=== PATIENT | female | born 1955 | race Caucasian/White ===

== ENCOUNTER 2016-12-20 10:11 | Observation (INO) | payer BC ==
--- NOTE | ~2016-12-20 | OP ---
Record Of Operation [facility] [address] [place]. [address] NAME: MATIAS CAMPBELL : 59 STATUS : DIS Zeenat PAT#: [id number] AGE: 61 ADM/REG DATE : 12/20/16 MR#: [id number] REPORT SERV DATE: 12/23/16 DICTATED BY: TIMUR SEBASTIAN DATE: 12/20/16 REPORT STATUS : Draft TRANSCRIBED BY: MODL DATE: 12/20/16 DATE OF PROCEDURE: 12/20/2016 REFERRING THEATRE PROGRAM DIRECTOR: Timur Sebastian M.D. PROCEDURE PERFORMED: Right renal angiogram, angioplasty, and stenting of the right renal artery with placement of a 6 x 18 Varsha stent. Successful Angio-Seal closure, right femoral artery. SCREEN EXAMINER: Timur Sebastian M.D. 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 TECHNIQUE: After informed consent was obtained from Ms. Campbell in this situation, she was brought to the cardiac catheterization laboratory in the afternoon of 12/20/2016 in the fasting state. The time-out was performed and correct patient and operative plan were confirmed. The right coronary area was prepped and draped in the usual sterile fashion. Local anesthesia was accomplished using 1% lidocaine. Using modified Seldinger technique, a micro sheath was placed in the right femoral artery with excellent arterial return. Femoral angiogram was obtained which demonstrated good stick in the common femoral artery, thought suitable for closure. There was also patent lovmq-br-ouho fem-fem bypass graft below the entrance site. Sheath was then exchanged for a 5-Tongan sheath which was double flushed and left in place. Using a 5-Tongan size 2 catheter, angiography of the solitary right renal artery was performed. The stent site was widely patent, but there was 80% stenosis beyond the stented region. At that time, I decided to perform angioplasty of the right renal artery. Next, the sheath was exchanged for a 6-Tongan Souleymane 2 sheath which was double flushed and left in place. The patient was heparinized to an ACT of greater than 200. The size 2 catheter was reengaged into the right renal artery. A Edwards wire was placed distally. The catheter was withdrawn from the body and the introducer was placed in the sheath. The sheath was then advanced beyond the lesion site. The wire was exchanged for an exchange Tai wire. The introducer was then removed. Next, a 6 mm x 20 mm Powerflex balloon was brought to the lesion site and inflations were performed with improved angiographic appearance. Next, a 6 mm x 18 mm Varsha stent was brought to the lesion site and carefully positioned. The stent was then deployed at 10 atmospheres with a complete balloon and stent expansion. The balloon was deflated and removed from the body. Followup angiography confirmed good angiographic result. There was no evidence of dissection or distal embolization. The guidewire was removed and final angiography was performed which demonstrated good angiographic result. The guiding catheter was disengaged and removed from body over a guidewire. The 6-Tongan Angio-Seal closure device was used with good hemostasis. There were no bleeding and no hematoma. The patient tolerated the procedure well without apparent complication. She was then returned to her room in good condition for access management. Record Of Operation [facility] [id number] [facility] [place]. [address] NAME: MATIAS CAMPBELL : 59 STATUS : DIS Zeenat PAT#: [id number] AGE: 61 ADM/REG DATE : 12/20/16 MR#: [id number] REPORT SERV DATE: 12/23/16 DICTATED BY: TIMUR SEBASTIAN DATE: 12/20/16 REPORT STATUS : Draft TRANSCRIBED BY: MODL DATE: 12/20/16 ACCESS: 6-Tongan RFA, 6-Tongan Souleymane 2 sheath. ESTIMATED BLOOD LOSS: Less than 25 mL. FLUOROSCOPY TIME: 9.1 minutes, mGy 675. CONTRAST: 110 mL nonionic. RESULTS: Solitary right renal artery is patent. There is a patent stent site in its proximal portion. There is 80% focal stenosis just beyond the distal stent edge. There is good washout of the right kidney. RESULTS: 1. 80% right renal artery stenosis in a solitary kidney beyond the prior stent site. 2. Patent stent site, proximal right renal artery. 3. Successful angioplasty and stenting of the right renal artery from 80% pre to 0% post. PATIENT DISPOSITION: Short-stay unit. RECOMMENDATIONS: 1. Aspirin and Plavix for least one month, and aspirin indefinitely. 2. Risk factor modification. 3. Ultrasound followup. ADDENDUM Intravenous moderate sedation was used. PEREZ/MODL Tmiur Sebastian M.D. / [id number] / [id number] CC: Servando Ceballos Andrea Michelle
[~2016-12-20 10:11] MED LIST: ALPRAZOLAM; ASAB PO; CADUET10 MG/40 M PO; CELEXA40 MG PO; COREG6 PO; LIPITOR40 PO; LORTAB10 PO; NEUR300 PO; PLAVIX PO; SENN OR; TRAZ100 PO; ZANAFLEX 4 MG TA4 MG PO
[2016-12-20] MEDS ORDERED: PEP20 PO (10:34)
[2016-12-20 11:34] LABS: BASOPHILS 0.4 %; BASOPHILS ABSOLUTE 0.03 10/3/uL (0.0-0.16); EOSINOPHILS ABSOLUTE 0.21 10/3/uL (0.0-0.53); HEMOGLOBIN 12.4 g/dL (12.0-16.0); IMMATURE GRANULOCYTES 0.3 %; IMMATURE GRANULOCYTES ABSOLUTE 0.02 10/3/uL (0.0-0.11); LYMPHOCYTES 40.2 %; LYMPHOCYTES ABSOLUTE 2.82 10/3/uL (0.67-4.30); MANUAL DIFF NO %; MEAN CORPUS HGB CONC 33.5 g/dL (32.0-36.0); MEAN CORPUSCULAR HEMOGLOB 30.6 pg (26.0-34.0); MEAN CORPUSCULAR VOLUME 91.4 fL (80-100); MEAN PLATELET VOLUME 10.1 fL (9.2-13.0); MONOCYTES 8.3 %; MONOCYTES ABSOLUTE 0.58 10/3/uL (0.21-1.20); NEUTROPHILS 47.8 %; NEUTROPHILS ABSOLUTE 3.36 10/3/uL (2.02-8.40); PLATELET COUNT 177 10/3/uL (150-400); RBC DISTRIBUTION WIDTH 14.7 % (12.0-16.0); RED CELL COUNT 4.05 10/6/uL (4.0-5.6)
[2016-12-20 11:50] LABS: A/G RATIO 0.9 (0.7-1.9); ALBUMIN 3.2 G/DL (3.5-5.0); BUN (BLOOD UREA NITROGEN) 13 MG/DL (6-23); CALCIUM, SERUM 8.9 MG/DL (8.5-10.4); CHLORIDE, SERUM 109 MMOL/L (96-112); CO2 (CARBON DIOXIDE) 25 MMOL/L (24-34); CREATININE 1.27 MG/DL (0.55-1.02); GFR AFRICAN AMERICAN 53 ML/MIN (>=60); GFR NON AFRICAN AMERICAN 46 ML/MIN (>=60); GLOBULIN 3.4 G/DL (2.5-4.1); GLUCOSE, SERUM 98 MG/DL (60-99); POTASSIUM, SERUM 4.1 MMOL/L (3.5-5.3); SGOT(AST) 13 U/L (5-40); SGPT(ALT) 13 U/L (5-65); SODIUM, SERUM 142 MMOL/L (135-148); TOTAL BILIRUBIN 0.4 MG/DL (0-1.2); TOTAL PROTEIN 6.6 G/DL (6.0-8.5)
[2016-12-20 11:51] LABS: ALKALINE PHOSPHATASE 75 U/L (45-117)
[2016-12-21 05:36] LABS: ASCORBIC ACID (UR NOT ORDER) NEG (NEG); BILIRUBIN, URINE NEGATIVE (NEG); KETONE, URINE NEGATIVE (NEG); LEUKOCYTE ESTERASE(NOT OR NEG (NEG); WBC (NOT ORDERED) (RFLEX) < 1 (0-5)
[2016-12-21 05:39] LABS: BUN (BLOOD UREA NITROGEN) 13 MG/DL (6-23); CALCIUM, SERUM 8.7 MG/DL (8.5-10.4); CHLORIDE, SERUM 112 MMOL/L (96-112); CO2 (CARBON DIOXIDE) 24 MMOL/L (24-34); CREATININE 1.16 MG/DL (0.55-1.02); GFR AFRICAN AMERICAN 60 ML/MIN (>=60); GFR NON AFRICAN AMERICAN 51 ML/MIN (>=60); GLUCOSE, SERUM 84 MG/DL (60-99); SODIUM, SERUM 143 MMOL/L (135-148)
== END 2016-12-21 13:00 | disposition home or self-care (01) ==
LOC: CORLMH 10:11 → SSU1 10:24
PROVIDERS: Internal Medicine Cardiovascular Disease
PROC: 047Y34Z Dilation of Lower Artery with Drug-eluting Intraluminal Device, Percutaneous Approach (ICD-10-PCS; principal; 2016-12-20)
DX: I70.1 Atherosclerosis of renal artery (principal); E78.2 Mixed hyperlipidemia; I10 Essential (primary) hypertension; I73.9 Peripheral vascular disease, unspecified; F17.210 Nicotine dependence, cigarettes, uncomplicated; Z95.820 Peripheral vascular angioplasty status with implants and grafts; Z86.73 Personal history of transient ischemic attack (TIA), and cerebral infarction without residual deficits
CPT/HCPCS: 36251; 37236; 80048; 80053; 81001; 84703; 85025; 85347; 93926; 99152; 99153; A9270-GY; C1725; C1760; C1769; C1876; C1894; G0378; J2250; J3010; Q9966; Q9967